=== PATIENT | male | born 1980 | race Caucasian/White ===

== ENCOUNTER 2021-11-17 06:59 | Emergency (ER) | payer MEDICAID ==
[~2021-11-17] VITALS: Ht 175.3 cm; Wt 88.6 kg
[~2021-11-17 06:59] MED LIST: NO HOME MEDS
[2021-11-17 07:07] VITALS: BP 141/102
[2021-11-17] MEDS ORDERED: ketorolac trometh inj. 60 MG/2 ML VIAL IM ONE (07:55)
[2021-11-17] MEDS ORDERED: ondansetron 4mg rapidly disintigrating tab PO ONE (07:55)
[2021-11-17] MEDS ORDERED: oxyCODONE IR 5mg (immed. release) tablet PO ONE (07:55)
[2021-11-17] MEDS ORDERED: OXYC10TA57 PO (08:33)
[2021-11-17] MEDS ORDERED: OXYC-658 PO (09:44)
== END 2021-11-17 08:45 | disposition home or self-care (01) ==
LOC: ER 07:00
DX: S83.004A Unspecified dislocation of right patella, initial encounter (principal); F12.10 Cannabis abuse, uncomplicated; W11.XXXA Fall on and from ladder, initial encounter; Y93.89 Activity, other specified; Y92.89 Other specified places as the place of occurrence of the external cause; Y99.8 Other external cause status
CPT/HCPCS: 29505; 73564; 93005; 96372; 99284; J1885

== ENCOUNTER 2021-11-25 16:55 | Emergency (ER) | payer MEDICAID ==
[~2021-11-25] VITALS: Ht 175.3 cm; Wt 88.6 kg
[~2021-11-25 16:55] MED LIST changes: +OXYC-658 PO; +OXYC10TA57 PO
[2021-11-25 17:25] VITALS: BP 127/81
[2021-11-25] MEDS ORDERED: ketorolac trometh inj. 60 MG/2 ML VIAL IM ONE (17:50)
[2021-11-25] MEDS ORDERED: KETO10TA2 PO (17:53)
[2021-11-25] MEDS ORDERED: OXYC-145 PO (17:53)
== END 2021-11-25 18:12 | disposition home or self-care (01) ==
LOC: ER 16:56
DX: S70.11XA Contusion of right thigh, initial encounter (principal); F12.10 Cannabis abuse, uncomplicated; Z79.899 Other long term (current) drug therapy; X58.XXXA Exposure to other specified factors, initial encounter; Y93.89 Activity, other specified; Y92.89 Other specified places as the place of occurrence of the external cause; Y99.8 Other external cause status
CPT/HCPCS: 96372; 99283; J1885

== ENCOUNTER 2023-06-14 14:29 | Emergency (ER) | payer MEDICAID ==
[~2023-06-14] VITALS: Ht 175.3 cm; Wt 80.0 kg
[~2023-06-14 14:29] MED LIST changes: +KETO10TA2 PO; +OXYC-145 PO; -OXYC-658 PO
[2023-06-14 14:30] VITALS: BP 125/80; PULSE 100; RESP 18; TEMP 98.4; O2SAT 95
[2023-06-14] MEDS ORDERED: CEPH-585 PO (15:50)
== END 2023-06-14 16:19 | disposition home or self-care (01) ==
LOC: ER 14:30
DX: S62.521B Displaced fracture of distal phalanx of right thumb, initial encounter for open fracture (principal); F12.90 Cannabis use, unspecified, uncomplicated; Z79.899 Other long term (current) drug therapy; W27.0XXA Contact with workbench tool, initial encounter; Y93.89 Activity, other specified; Y92.89 Other specified places as the place of occurrence of the external cause; Y99.8 Other external cause status
CPT/HCPCS: 12001; 73140; 99283; A6258